=== PATIENT | female | born 1960 | race Caucasian/White ===

== ENCOUNTER 2016-08-07 20:07 | Emergency (ER) | payer OTHER ==
--- NOTE | 2016-08-07 20:34 | ER Document Report ---
ED Neuro Symptoms/Deficit - General TRAVEL OUTSIDE OF THE [place] IN LAST 30 DAYS: No - General Chief Complaint: Head Injury Stated Complaint: FALL SHOULDER PAIN - Related Data Allergies/Adverse Reactions: codeine Allergy (Verified 08/07/16 20:20) tetracycline Allergy (Verified 08/07/16 20:20) vancomycin Allergy (Verified 08/07/16 20:20) Past Medical History - Social History Patient has suicidal ideation: No Patient has homicidal ideation: No Renal/ Medical History: Denies: Hx Peritoneal Dialysis Course - Re-evaluation Re-evalutation: 08/07/16 20:41 Patient presents emergency room with altered mental status daughter is at the bedside. She states she tripped 2 days ago over a baby gate and landed on the ground. Family reports intermittent confusion since then initially they took her out to dinner today they said since 3:00 she has been moving her right upper extremity and trouble feeding herself and is altered and difficult to arouse but continue to go through dinner and did not come into the emergency department until this evening because she did not want to come. They state that the way she is behaving right now is new since 3:00. On dependent diabetes but her Accu-Chek is normal daughter also states she had some problems with her right shoulder. On physical exam her Accu-Chek is normal her blood pressure is stable patient is and out of sleepiness and drowsiness she will communicate with me in her words are not for which she has a right-sided facial droop right upper extremity weakness 2 out of 4 compared to left upper extremity weakness. Immediately made her stroke protocol and straight to CT following straight to bed [address] masterson check to the main side physician concerns for acute stroke versus bleed versus altered mental status. I personally performed the services described in the documentation, reviewed and edited the documentation which was dictated to my scribe in my presence, and it accurately records my words and actions. (HERBERT SUNG) - Vital Signs Vital signs: Temp Pulse Resp BP Pulse Ox 97.9 F 92 18 145/65 H 99 08/07/16 20:15 08/07/16 20:15 08/07/16 20:15 08/07/16 20:15 08/07/16 20:15
[2016-08-07 21:30] LABS: ABSOLUTE EOSINOPHILS # (AUTO) 0.1 10^3/uL (0.0-0.6); ABSOLUTE MONOCYTES (AUTO) 0.5 10^3/uL (0.1-1.4); ABSOLUTE NEUT (AUTO) 5.5 10^3/uL (1.7-8.2); BASOPHILS % (AUTO) 0.5 % (0-2); EOSINOPHILS % (AUTO) 1.8 % (0-6); HEMATOCRIT 40.3 % (36.0-47.0); HEMOGLOBIN 13.4 g/dL (12.0-15.5); HGB HCT DIFFERENCE -0.1; LYMPHOCYTES % (AUTO) 24.9 % (13-45); MEAN CORPUSCULAR HEMOGLOBIN 29.1 pg (27.0-33.4); MEAN CORPUSCULAR HGB CONC 33.2 g/dL (32.0-36.0); MEAN CORPUSCULAR VOLUME 88 fl (80-97); MONOCYTES % (AUTO) 6.1 % (3-13); RED CELL DISTRIBUTION WIDTH 13.1 % (11.5-14.0); SEGMENTED NEUTROPHILS % (AUTO) 66.7 % (42-78); WHITE BLOOD COUNT 8.2 10^3/uL (4.0-10.5)
--- NOTE | 2016-08-07 21:30 | ER Document Report ---
ED Medical Screen (RME) - General Information source: Relative - daughter at bedside TRAVEL OUTSIDE OF THE [place] IN LAST 30 DAYS: No <VICENTE HOYT - Last Filed: 08/07/16 21:28> <HERBERT SUNG - Last Filed: 08/17/16 10:58> - General Chief Complaint: Head Injury Stated Complaint: FALL SHOULDER PAIN Time Seen by Provider: 08/07/16 20:45 Notes: Patient presents today secondary to a fall that occurred 2 days ago. Daughter states the patient fell forward onto tile and had to be picked up by her son-in- law. Upon further investigation, daughter states that at approximately 1500 today the patient became very confused, stating she "does not understand things and repeats things over and over" along with an exaggerated limp. Daughter states the patient was "not right" since the fall but it seems that the patient has become much worse since 1500 today according to history. The daughter mentions the patient complaining about right shoulder pain today at dinner. Daughter denies a history of CVA or mini stroke in the past. (VICENTE HOYT) - Related Data Allergies/Adverse Reactions: codeine Allergy (Verified 08/07/16 20:20) tetracycline Allergy (Verified 08/07/16 20:20) vancomycin Allergy (Verified 08/07/16 20:20) Past Medical History Renal/ Medical History: Denies: Hx Peritoneal Dialysis <VICENTE HOYT - Last Filed: 08/07/16 21:28> Course - Laboratory Result Diagrams: 08/07/16 20:55 08/07/16 20:55 <VICENTE HOYT - Last Filed: 08/07/16 21:28> - Laboratory Result Diagrams: 08/07/16 20:55 08/07/16 20:55 <HERBERT SUNG - Last Filed: 08/17/16 10:58> - Re-evaluation Re-evalutation: 08/07/16 20:41 Patient presents emergency room with altered mental status daughter is at the bedside. She states she tripped 2 days ago over a baby gate and landed on the ground. Family reports intermittent confusion since then initially they took her out to dinner today they said since 3:00 she has been moving her right upper extremity and trouble feeding herself and is altered and difficult to arouse but continue to go through dinner and did not come into the emergency department until this evening because she did not want to come. They state that the way she is behaving right now is new since 3:00. On dependent diabetes but her Accu-Chek is normal daughter also states she had some problems with her right shoulder. On physical exam her Accu-Chek is normal her blood pressure is stable patient is and out of sleepiness and drowsiness she will communicate with me in her words are not for which she has a right-sided facial droop right upper extremity weakness 2 out of 4 compared to left upper extremity weakness. Immediately made her stroke protocol and straight to CT following straight to bed 19 give report to plan check to the main side physician concerns for acute stroke versus bleed versus altered mental status. I personally performed the services described in the documentation, reviewed and edited the documentation which was dictated to my scribe in my presence, and it accurately records my words and actions. (HERBERT SUNG) (VICENTE HOYT) - Vital Signs Vital signs: Temp Pulse Resp BP Pulse Ox 98.0 F 92 19 131/65 H 92 08/07/16 23:01 08/07/16 20:15 08/08/16 00:21 08/08/16 00:21 08/08/16 00:21 - Laboratory Laboratory results interpreted by me: 08/07/16 08/07/16 20:30 20:55 BUN 23 H Est GFR (Non-Af Amer) 54 L Glucose 202 H POC Glucose 193 H Calcium 10.3 H Direct Bilirubin 0.6 H Acetaminophen < 10 L Doctor's Discharge <VICENTE HOYT - Last Filed: 08/07/16 21:28> <HERBERT SUNG - Last Filed: 08/17/16 10:58> - Discharge Clinical Impression: Malignant neoplasm metastatic to brain Condition: Serious Disposition: [facility] Scribe Documentation - Scribe Written by Slim:: Slim Biggs, [id number]/07/[id number] acting as scribe for :: Ramon <VICENTE HOYT - Last Filed: 08/07/16 21:28>
[2016-08-07 21:52] LABS: ALANINE AMINOTRANSFERASE 22 U/L (9-52); ALBUMIN 4.3 g/dL (3.5-5.0); ALKALINE PHOSPHATASE 44 U/L (38-126); ANION GAP 13 (5-19); ASPARTATE AMINO TRANSFERASE 19 U/L (14-36); BILIRUBIN,DIRECT 0.6 mg/dL (0.0-0.4); BLOOD UREA NITROGEN 23 mg/dL (7-20); CALCIUM 10.3 mg/dL (8.4-10.2); CARBON DIOXIDE 25 mmol/L (22-30); CHLORIDE 105 mmol/L (98-107); CREATININE RESULT 1.04 mg/dL (0.52-1.25); GLUCOSE 202 mg/dL (75-110); POTASSIUM 4.5 mmol/L (3.6-5.0); TOTAL PROTEIN 7.5 g/dL (6.3-8.2)
[2016-08-07 21:53] LABS: ALCOHOL < 10 mg/dL (NONE DETECTED)
[2016-08-07 22:04] LABS: TROPONIN I < 0.012 ng/mL
[2016-08-07] MEDS ORDERED: DEXAMETHASONE SOD PHOS INJ 10 MG/1 ML VIAL IV ONE (22:07)
--- NOTE | 2016-08-07 22:12 | ER Document Report ---
ED Neuro Symptoms/Deficit - General Chief Complaint: Head Injury Stated Complaint: FALL SHOULDER PAIN Time Seen by Provider: 08/07/16 20:45 Information source: Relative TRAVEL OUTSIDE OF THE [place] IN LAST 30 DAYS: No - HPI Patient complains to provider of: Difficulty standing, Difficulty walking, Facial Droop, Falling, Speech Impairment Onset: Last week Symptoms are: Worse/persistent Duration: Continues in ED Baseline Cognitive: Alert but disoriented, Alert but confused Baseline Gait: Walks w/o assistance Patient Orientation: Person Character of altered mental status: Confused, Decreased responsiveness, Disoriented New weakness: RUE Decreased ability to stand/walk: Weak, Difficult, Off balance Impaired speech/swallowing: Difficult Associated symptoms: Falling injury Similar symptoms previously: No Recently seen / treated by doctor: No Notes: Patient is a 56-year-old female with a history of diabetes, hypertension, acid reflux, who was brought to the emergency room by family for concerns of altered mental status with weakness, difficulty walking, patient had a fall over a dog gate approximately 1 week ago which is unusual for her, since then she has not been moving her right arm very much and has not been acting right, has become increasingly confused, disoriented and somnolent, today she slept until about 1 PM, she woke up attempted to drink some coffee with her but then went right back to sleep, when she woke up again around 5 PM, family attempted to take her out to dinner, at the restaurant she was disoriented, basically nonverbal, and stumbled, so family brought her to the emergency room for evaluation, patient is not a smoker, she has no known history of any cancer or metastatic disease, no injury since the fall 1 week ago - Related Data Allergies/Adverse Reactions: codeine Allergy (Verified 08/07/16 20:20) tetracycline Allergy (Verified 08/07/16 20:20) vancomycin Allergy (Verified 08/07/16 20:20) Past Medical History - General Information source: Relative - daughter at bedside - Social History Smoking Status: Never Smoker Family History: Reviewed & Not Pertinent Patient has suicidal ideation: No Patient has homicidal ideation: No Renal/ Medical History: Denies: Hx Peritoneal Dialysis Review of Systems - Review of Systems Constitutional: No symptoms reported EENT: No symptoms reported Cardiovascular: No symptoms reported Respiratory: No symptoms reported Gastrointestinal: No symptoms reported Genitourinary: No symptoms reported Female Genitourinary: No symptoms reported Musculoskeletal: No symptoms reported Skin: No symptoms reported Hematologic/Lymphatic: No symptoms reported Neurological/Psychological: See HPI -: Yes All other systems reviewed and negative Physical Exam - Vital signs Vitals: Temp Pulse Resp BP Pulse Ox 97.9 F 92 18 145/65 H 99 08/07/16 20:15 08/07/16 20:15 08/07/16 20:15 08/07/16 20:15 08/07/16 20:15 Interpretation: Normal - General General appearance: Lethargic In distress: None - HEENT Head: Normocephalic, Atraumatic Eyes: Normal Conjunctiva: Normal Eyelashes: Normal Pupils: PERRL Ears: Normal Pharynx: Normal Neck: Normal - Respiratory Respiratory status: No respiratory distress Chest status: Nontender Breath sounds: Normal Chest palpation: Normal - Cardiovascular Rhythm: Regular Heart sounds: Normal auscultation - Abdominal Inspection: Normal, Obese Distension: No distension Bowel sounds: Normal Tenderness: Nontender Organomegaly: No organomegaly - Back Back: Normal - Extremities General lower extremity: Normal inspection - Neurological Cognition: Confused Orientation: Disoriented to place, Disoriented to time, Disoriented to events [place] Coma Scale Eye Opening: To Voice [place] Coma Scale Verbal: Confused [place] Coma Scale Motor: Obeys Commands [place] Coma Scale Total: 13 Motor strength normal: No: RUE Additional motor exam normals: Pronator drift, Weakness - Skin Skin Temperature: Warm Skin Moisture: Dry Skin Color: Normal Course - Re-evaluation Re-evalutation: 08/07/16 22:13 Patient was discussed with on-call oncologist, Dr. Rm, who recommends patient received 10 mg of IM Decadron, he also recommends that she be transferred to tertiary care facility given the nature of her hemorrhagic lesion which may require neurosurgery evaluation 08/07/16 22:14 A call was placed to [facility], patient was discussed with Danita and the transfer center who will call back with appropriate consultants for transfer patient 08/07/16 22:35 Patient family is requesting that she be transferred to [facility] as this is their preferred hospital for transfer A call was placed to [facility], Kevin in the transfer center will have appropriate consultants callback 08/07/16 22:41 Patient was discussed with Dr. Buchanan, neurologist at [facility], who graciously accepted patient for transfer for higher level of care, transfer center reports that they do not anticipate an available bed the evening however 08/07/16 22:51 Patient was discussed with Dr. Guillen, hospitalist at [facility], who accepted patient for transfer but would like to have neurosurgery consulted first to see if they would accept patient to their service directly will be on consult, transfer center will now contact neurosurgery and have them call back 08/07/16 23:01 Patient was discussed with Sudarshan Funk, neurosurgery, who agrees to consult on patient but recommends that she be transferred to the hospitalist service 08/08/16 01:10 Patient is resting comfortably with stable vital signs, no acute distress, EMS Crew in the emergency room to transport patient to tertiary care center for higher level of care, patient is stable for transport at this time - Vital Signs Vital signs: Temp Pulse Resp BP Pulse Ox 98.0 F 92 19 131/65 H 92 08/07/16 23:01 08/07/16 20:15 08/08/16 00:21 08/08/16 00:21 08/08/16 00:21 - Laboratory Result Diagrams: 08/07/16 20:55 08/07/16 20:55 Laboratory results interpreted by me: 08/07/16 08/07/16 20:30 20:55 BUN 23 H Est GFR (Non-Af Amer) 54 L Glucose 202 H POC Glucose 193 H Calcium 10.3 H Direct Bilirubin 0.6 H Acetaminophen < 10 L - Diagnostic Test Radiology reviewed: Image reviewed, Reports reviewed - EKG Interpretation by Me EKG shows normal: Sinus rhythm Rate: Tachycardia Discharge - Discharge Clinical Impression: Metastatic cancer to brain of unknown cell type Condition: Serious Disposition: [facility]
[2016-08-08 00:26] VITALS: BP 131/65
--- NOTE | 2016-08-08 17:44 | EKG REPORT ---
SEVERITY:- ABNORMAL ECG - FAST SINUS ARRHYTHMIA, RATE 72-132 PROBABLE INFERIOR INFARCT, AGE INDETERMINATE CONSIDER ANTERIOR INFARCT : Confirmed by: Norah Phan MD 08-Aug-2016 17:43:30
== END 2016-08-08 00:45 | disposition short-term general hospital (02) ==
LOC: ER 20:07
DX: C79.31 Secondary malignant neoplasm of brain (principal); S09.90XA Unspecified injury of head, initial encounter; M25.519 Pain in unspecified shoulder; E11.9 Type 2 diabetes mellitus without complications; I10 Essential (primary) hypertension; K21.9 Gastro-esophageal reflux disease without esophagitis; R41.82 Altered mental status, unspecified; W19.XXXA Unspecified fall, initial encounter
CPT/HCPCS: 93005; 99285; 96374; 36415; 82553; 82962; 80307 ×2; 85025; 80053; 84484; 83605; 83880; 71010; 73030; 70450; 93010; J1100

== ENCOUNTER → 2016-08-31 | Outpatient (CLI) | payer OTHER ==
--- NOTE | 2016-08-31 16:05 | RADIOLOGY REPORT (SQ) ---
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 TECHNIQUE: Multiplanar imaging includes noncontrasted T1, T2, FLAIR, diffusion with ADC map and post gadolinium contrast T1 sequences. Images stored on PACS. CONTRAST TYPE AND DOSE: 15 mL Multihance. RENAL FUNCTION: GFR 54. LIMITATIONS: None. FINDINGS: ANATOMY: No anomalies. Normal vascular flow voids. Pituitary fossa normal. CSF SPACES: Normal in size and contour. No hemorrhage. CEREBRUM: There is stable surgical change in the left frontal lobe extending to the left basal gangli a and cerebral peduncle. Increased T1 signal on precontrast imaging in the surgical bed has become m ore prominent. Again seen are areas of increased T2 and FLAIR signal centrally consistent with posto perative change. Peripheral enhancement along the operative bed. 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 There is some white matter edema on FLAIR jenelle ging but no mass effect or midline shift. POSTERIOR FOSSA: No signal alteration. No hemorrhage. No edema, masses, or mass effect. Internal michel tory canals, cerebellopontine angles, mastoids normal. No enhancing lesions. No abnormal enhancement post contrast. DIFFUSION IMAGING: Negative for acute or subacute infarction. ORBITS: No masses. Globes normal. PARANASAL SINUSES: No fluid levels. Mucosa normal. OTHER: No other significant finding. IMPRESSION: STABLE SURGICAL CHANGES DESCRIBED. IMPROVEMENT IN THE MASS EFFECT AND MIDLINE SHIFT. RIM-LIKE PERIPHERAL ENHANCEMENT ALONG THE OPERATIVE BED PRESUMABLY RELATED TO SURGERY. THERE IS SO ME NODULARITY POSTERIORLY AND CANNOT EXCLUDE RESIDUAL TUMOR. TECHNICAL DOCUMENTATION: JOB ID: [id number] [employer]- All Rights Reserved
== END ==
LOC: RAD 12:49
PROVIDERS: ATTEND Radiology Radiation Oncology
DX: C71.1 Malignant neoplasm of frontal lobe (principal)
CPT/HCPCS: 70553; A9577

== ENCOUNTER → 2016-09-23 | Outpatient (CLI) | payer OTHER ==
[2016-09-23 12:07] LABS: ABSOLUTE LYMPHOCYTES (AUTO) 0.6 10^3/uL (0.5-4.7); ABSOLUTE MONOCYTES (AUTO) 0.4 10^3/uL (0.1-1.4); ABSOLUTE NEUT (AUTO) 8.7 10^3/uL (1.7-8.2); EOSINOPHILS % (AUTO) 0.3 % (0-6); HEMATOCRIT 42.1 % (36.0-47.0); HEMOGLOBIN 14.1 g/dL (12.0-15.5); HGB HCT DIFFERENCE 0.2; LYMPHOCYTES % (AUTO) 6.6 % (13-45); MEAN CORPUSCULAR HEMOGLOBIN 30.2 pg (27.0-33.4); MEAN CORPUSCULAR HGB CONC 33.4 g/dL (32.0-36.0); MEAN CORPUSCULAR VOLUME 90 fl (80-97); MONOCYTES % (AUTO) 3.7 % (3-13); RED BLOOD COUNT 4.66 10^6/uL (3.72-5.28); RED CELL DISTRIBUTION WIDTH 14.5 % (11.5-14.0); SEGMENTED NEUTROPHILS % (AUTO) 89.4 % (42-78); WHITE BLOOD COUNT 9.7 10^3/uL (4.0-10.5)
== END ==
LOC: OD 11:15
PROVIDERS: ATTEND Radiology Radiation Oncology
DX: C71.1 Malignant neoplasm of frontal lobe (principal)
CPT/HCPCS: 36415; 85025

== ENCOUNTER → 2016-09-29 | Outpatient (CLI) | payer OTHER ==
[2016-09-29 11:59] LABS: ABSOLUTE LYMPHOCYTES (AUTO) 0.6 10^3/uL (0.5-4.7); ABSOLUTE MONOCYTES (AUTO) 0.3 10^3/uL (0.1-1.4); ABSOLUTE NEUT (AUTO) 7.7 10^3/uL (1.7-8.2); BASOPHILS % (AUTO) 0.1 % (0-2); EOSINOPHILS % (AUTO) 0.2 % (0-6); HEMATOCRIT 41.7 % (36.0-47.0); HEMOGLOBIN 14.3 g/dL (12.0-15.5); HGB HCT DIFFERENCE 1.2; LYMPHOCYTES % (AUTO) 6.6 % (13-45); MEAN CORPUSCULAR HEMOGLOBIN 31.3 pg (27.0-33.4); MEAN CORPUSCULAR HGB CONC 34.3 g/dL (32.0-36.0); MEAN CORPUSCULAR VOLUME 91 fl (80-97); MONOCYTES % (AUTO) 3.9 % (3-13); RED BLOOD COUNT 4.57 10^6/uL (3.72-5.28); RED CELL DISTRIBUTION WIDTH 15.1 % (11.5-14.0); SEGMENTED NEUTROPHILS % (AUTO) 89.2 % (42-78); WHITE BLOOD COUNT 8.7 10^3/uL (4.0-10.5)
== END ==
LOC: OD 11:19
PROVIDERS: ATTEND Radiology Radiation Oncology
DX: C71.1 Malignant neoplasm of frontal lobe (principal)
CPT/HCPCS: 36415; 85025

== ENCOUNTER → 2016-10-06 | Outpatient (CLI) | payer OTHER ==
[2016-10-06 12:10] LABS: HEMATOCRIT 38.3 % (36.0-47.0); HEMOGLOBIN 13.1 g/dL (12.0-15.5); MEAN CORPUSCULAR HEMOGLOBIN 30.8 pg (27.0-33.4); MEAN CORPUSCULAR HGB CONC 34.1 g/dL (32.0-36.0); MEAN CORPUSCULAR VOLUME 90 fl (80-97); RED BLOOD COUNT 4.25 10^6/uL (3.72-5.28); RED CELL DISTRIBUTION WIDTH 15.5 % (11.5-14.0)
[2016-10-06 12:41] LABS: BASOPHILS % (MANUAL) 0 % (0-2); EOSINOPHILS % (MANUAL) 1 % (0-6); LYMPHOCYTES % (MANUAL) 16 % (13-45); TOTAL CELLS COUNTED 100
[2016-10-06 12:52] LABS: ANISOCYTOSIS SLIGHT; POLYCHROMASIA SLIGHT; TOXIC GRANULATION SLIGHT
[2016-10-06 12:53] LABS: PLATELET CLUMPS PRESENT
== END ==
LOC: OD 11:04
PROVIDERS: ATTEND Radiology Radiation Oncology
DX: C71.1 Malignant neoplasm of frontal lobe (principal)
CPT/HCPCS: 36415; 85025

== ENCOUNTER → 2016-10-13 | Outpatient (CLI) | payer OTHER ==
[2016-10-13 12:34] LABS: ABSOLUTE EOSINOPHILS # (AUTO) 0.1 10^3/uL (0.0-0.6); ABSOLUTE LYMPHOCYTES (AUTO) 0.7 10^3/uL (0.5-4.7); ABSOLUTE MONOCYTES (AUTO) 0.4 10^3/uL (0.1-1.4); ABSOLUTE NEUT (AUTO) 5.1 10^3/uL (1.7-8.2); BASOPHILS % (AUTO) 0.5 % (0-2); EOSINOPHILS % (AUTO) 1.3 % (0-6); HEMATOCRIT 33.9 % (36.0-47.0); HEMOGLOBIN 11.5 g/dL (12.0-15.5); HGB HCT DIFFERENCE 0.6; LYMPHOCYTES % (AUTO) 10.8 % (13-45); MEAN CORPUSCULAR HEMOGLOBIN 31.1 pg (27.0-33.4); MEAN CORPUSCULAR VOLUME 91 fl (80-97); MONOCYTES % (AUTO) 6.5 % (3-13); RED BLOOD COUNT 3.71 10^6/uL (3.72-5.28); RED CELL DISTRIBUTION WIDTH 16.2 % (11.5-14.0); SEGMENTED NEUTROPHILS % (AUTO) 80.9 % (42-78); WHITE BLOOD COUNT 6.4 10^3/uL (4.0-10.5)
== END ==
LOC: OD 11:39
PROVIDERS: ATTEND Radiology Radiation Oncology
DX: C71.1 Malignant neoplasm of frontal lobe (principal)
CPT/HCPCS: 36415; 85025